=== PATIENT | male | born 1975 | race Caucasian/White ===

== ENCOUNTER 2016-10-30 15:35 | Emergency (ER) | payer MEDICAID ==
[~2016-10-30] VITALS: Ht 172.7 cm; Wt 90.0 kg
[2016-10-30 16:01] VITALS: Ht 172.7 cm; Wt 90.0 kg
--- NOTE | 2016-10-30 19:19 | RADRPT ---
PROCEDURE: CT Brain without contrast. CLINICAL INDICATION: Trauma. Pain. . TECHNIQUE: Serial axial computed tomographic images of the brain was performed on a CT scanner fro m the skull base through the vertex without contrast. Exam CTDlvol = 40 mGy and DLP = 790 mGy-cm. One of the following 3 dose reduction techniques were used: Automated exposure control; adjustment of the mA and/or kV according to patient size; or use of iterative reconstruction technique. COMPARISON: None available. FINDINGS: There is no fracture. The ventricles and sulci are normal in size and configuration. There is no m idline shift. There is a punctate left parietal cortical calcification. There is no acute stroke. N o acute intracranial hemorrhage or abnormal extra-axial fluid collection. Visualized paranasal sin uses are clear. IMPRESSION: 1. No acute post-traumatic abnormality. 2. Punctate left parietal cortical calcification, most commonly seen post inflammatory/infectious s uch as cysticercosis. RPTAT: [facility] .Danny Adair MD, MD Date Time Electronically viewed and signed by .Danny Adair MD, on 10/30/2016 19:19 .K/
[2016-10-30] MEDS ORDERED: TRAM50TA2 PO (20:54)
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
[2016-10-30 21:31] VITALS: BP 133/78; PULSE 79; RESP 18; TEMP 98
== END 2016-10-30 21:31 | disposition home or self-care (01) ==
LOC: FTE 15:35
DX: S09.90XA Unspecified injury of head, initial encounter (principal); R51 Headache; W51.XXXA Accidental striking against or bumped into by another person, initial encounter; Y92.9 Unspecified place or not applicable
CPT/HCPCS: 70450